=== PATIENT | male | born 1970 | race Two or more races ===

== ENCOUNTER 2021-08-20 16:47 | Emergency (ER) | payer MEDICARE, OTHER ==
[~2021-08-20] VITALS: Ht 188 cm; Wt 90.7 kg
[2021-08-20 16:55] VITALS: BP 131/79
== END 2021-08-20 17:01 | disposition left against medical advice (07) ==
LOC: ER 16:47
DX: M25.532 Pain in left wrist (principal); Z53.21 Procedure and treatment not carried out due to patient leaving prior to being seen by health care provider; V00.311A Fall from snowboard, initial encounter; Y93.89 Activity, other specified; Y92.89 Other specified places as the place of occurrence of the external cause; Y99.8 Other external cause status